=== PATIENT | female | born 1985 | race Caucasian/White ===

== ENCOUNTER → 2017-09-05 09:53 | Outpatient (CLI) | payer BC, SELFPAY ==
--- NOTE | 2017-09-05 10:04 | NM_ITS ---
HEPATOBILIARY SCAN WITH FATTY MEAL/ENSURE ORDERING PHYSICIAN : Abeba Capps PATIENT AGE: 32 years GENDER: Female HISTORY: Right upper quadrant pain and nausea Following 7.67millicuries Tc Choletec, images of the RUQ were obtained. There is prompt uptake of radionuclide by the liver incidental note of a tiny subcentimeter focal photopenic left lobe liver with no corresponding finding on the day before prior RUQ ultrasound 2014. Doubt this observation significance is a 32-year-old but noted. Possibly portal vein structure viewed on end? Rapid Generous activity Small bowel is visualized. The gallbladder was allowed to fill out to 60 minutes. Fatty meal/1 can of ensure over administered with imaging performed over 60 minutes minutes. Thereafter. The obtain data was analyzed and reveals a 16 % gallbladder ejection fraction (normal greater than 50%; borderline 35-50%). The technologist did not comment on pain following fatty meal but more typically would if there were pain. . Visual inspection which supports that there is suboptimal contraction of the gallbladder as well. Although activity overlying bowel loop may may contribute this low ejection fraction at calculation IMPRESSION: . Abnormal functioning gallbladder. Low 16% % gallbladder ejection fraction following fatty meal /1 can of ensure. Suboptimal contraction supporting cholecystitis/biliary dyskinesia Tiny subcentimeter photopenic area left lobe of liver is noted with no corresponding finding left lobe on ultrasound. Doubt of significance in this age patient
--- NOTE | 2017-09-05 10:36 | US_ITS ---
US abdomen limited Ordering Physician: Abeba Capps Patient Age: 32 years: Female HISTORY: ITS.REASON: RUQ PAIN TECHNIQUE: Ultrasound abdomen-] quadrant COMPARISON :Previous ultrasound right upper quadrant July 2015 FINDINGS Pancreas appears satisfactory. Unremarkable Liver. . No biliary ductal dilatation Gallbladder. No gallstones scant sludge. No gallbladder wall thickening or inflammation. Moderate size gallbladderl 8 seem in length. CBD normal diameter less than 2 mm at hilum of liver. Right kidney normal size 9 point to 5 cm. No hydronephrosis nor mass. . No significant change since 2014 ultrasound right upper quadrant IMPRESSION: -------- Gallbladder. No gallstones. Scant debris and sludge. Not significant. Moderatesize gallbladder Liver pancreas & right kidney unremarkable
== END ==
PROVIDERS: Family Provider Family Medicine; PCP Family Medicine; Visit Provider Nurse Practitioner
DX: R10.11 Right upper quadrant pain (principal); K83.8 Other specified diseases of biliary tract
CPT/HCPCS: 76705; 78227; A9537

== ENCOUNTER → 2021-08-10 11:42 | Outpatient (CLI) | payer BC, SELFPAY ==
[2021-08-10 12:13] LABS: Adenovirus,PCR Not Detected (NotDetected); Bordetella Pertussis Not Detected (NotDetected); Chlamydophila Pneumoniae, PCR Not Detected (NotDetected); Coronavirus 19, PCR Not Detected (NotDetected); Coronavirus 229E Not Detected (NotDetected); Coronavirus NL63 Not Detected (NotDetected); Coronavirus OC43 Not Detected (NotDetected); Coronovirus HKU1,PCR Not Detected (NotDetected); Human Metapneumovirus Not Detected (NotDetected); Influenza A, PCR Not Detected (NotDetected); Influenza AH1, 2009 Not Detected (NotDetected); Influenza AH1, PCR Not Detected (NotDetected); Influenza AH3,PCR Not Detected (NotDetected); Influenza B, PCR Not Detected (NotDetected); Mycoplasma Pneumoniae, PCR Not Detected (NotDetected); Parainfluenza 1, PCR Not Detected (NotDetected); Parainfluenza 2, PCR Not Detected (NotDetected); Parainfluenza 3, PCR Not Detected (NotDetected); Parainfluenza 4, PCR Not Detected (NotDetected); Respiratory Syncytial Virus Not Detected (NotDetected); Rhinovirus/Enterovirus Not Detected (NotDetected)
[2021-08-10 12:19] LABS: Basophils # 0.1 K/mm3 (0-0.2); Basophils % 1.7 % (0.1-2.0); Eosinophils # 0.1 K/mm3 (0.0-0.4); Eosinophils % 1.7 % (0.1-12.0); Hematocrit 43.5 % (37.0-47.0); Hemoglobin 13.7 g/dL (12.2-16.2); Lymphocytes # 1.8 K/mm3 (0.7-4.5); Lymphocytes % 28.3 % (10-50); Mean Corpuscular HGB Conc 31.5 g/dL (31.8-35.4); Mean Corpuscular Hemoglobin 28.8 pg (27.0-31.2); Mean Corpuscular Volume 91.4 fl (81-99); Monocytes # 0.3 K/mm3 (0.1-1.0); Monocytes % 4.6 % (1.7-9.3); Neutrophils # 4.1 K/mm3 (1.8-7.8); Neutrophils % 63.7 % (37.0-80.0); Platelet Count 324 K/mm3 (142-424); Red Blood Count 4.76 M/mm3 (4.20-5.40); White Blood Count 6.4 K/mm3 (4.8-10.8)
[2021-08-10 14:48] LABS: Strep Scrn Group A (Rapid) Negative (Negative)
== END ==
PROVIDERS: PCP Nurse Practitioner; Visit Provider Nurse Practitioner
DX: Z20.822 Contact with and (suspected) exposure to COVID-19 (principal)
CPT/HCPCS: 36415; 85025; 87430; 87581; 87632; 87798; C9803; U0003; U0005

== ENCOUNTER 2021-08-25 11:26 | Emergency (ER) | payer BC, SELFPAY ==
[2021-08-25 13:35] VITALS: BP 136/82; PULSE 98; RESP 20; TEMP 37; O2SAT 100; BMI 30.5
--- NOTE | 2021-08-25 14:16 | [facility].EDUTC ---
[facility] [place] Disposition Clinical Impression: Close exposure to COVID-19 virus, Sore throat Disposition: Home, Self-Care Condition on Discharge: Good Instructions: DI for COVID-19 (Suspected or Confirmed ) Additional Instructions: covid swab was sent to lab, call tomorrow for results. self isolate until test results are known to be negative No sign of a bacterial infection. Likely viral. Viruses can take 7-14 days to run their course. Nasal saline and bulb syringe or nose Radha to remove nasal drainage to help with nasal congestion. Hard to eat, drink, sleep with nasal congestion so important to keep this cleaned out. Monitor temp. Tylenol or Motrin as needed for pain or fever Encourage fluids, water, Gatorade, Powerade, Pedialyte if /toddler/child Warm salt water gargles Warm fluids Sore throat lozenges Sleep elevated Humidifier/vaporizer Follow-up immediately for new or worsening symptoms or no noticeable improvement over the next 48-72 hours. Referrals: Abeba Capps APRN [Primary Care Provider] - Time of Disposition: 14:19 Medical Decision Making - Greg Inquiry Pt receiving controlled substance: No Vital Signs: 08/25/21 13:35 Temperature 98.6 F Temperature Source Oral Pulse Rate [Right Brachial] 98 H Respiratory Rate 20 Blood Pressure [Right Arm] 136/82 Blood Pressure Mean [Right Arm] 100 Blood Pressure Source [Right Arm] Automatic Cuff Blood Pressure Position [Right Arm] Supine 02 Sat by Pulse Oximetry 100 Oxygen Delivery Method Room Air Orders (Tests/Meds): ORDERS Category Date Time Status Covid-19 Nasal PCR ([facility]) Routine Lab 08/25/21 13:40 Ordered [facility] [place] HPI - General Chief complaint: Urgent Treatment Center Stated complaint: covid test, sore throat Time Seen by Provider: 08/25/21 14:17 Mode of Arrival: Ambulatory Source of Information: Patient Limitations: No Limitations Description of Symptoms (Recalled from Triage Doc. by RN): SORE THROAT AND COVID TEST HEENT Symptoms (Recalled from RN notes): No Resp Symptoms (Recalled from RN notes): No Skin Symptoms (Recalled from RN notes): No MS Symptoms (Recalled from RN notes): No Functional Status (Recalled from RN notes): N/A - History of Present Illness Provider Complaint: 36 yr old female presents for covid test. 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 I have reviewed the patient's past medical history: Yes Medical History: Reports:: Urinary Tract Infection Other Medical History: Reports: Anemia Laterality Cases: Bilateral: Tonsillectomy Other Surgeries: Yes: Cholecystectomy, Tubal Ligation Amputation: No Fractures: No Comment: Rt. Temporal cyst removed-2004. [place] teeth removal-2006. BTC, repair of uterine perforation-2016 - Social History Smoking Status: Never smoker Alcohol Intake: never Substance Use Type: denies use Occupational Status: employed Family Hx:: Coronary Artery Disease [employer] history: Non-contributory ROS Obtained: Yes Systems reviewed as appropriate & no additional complaints - Constitutional Constitutional: Reports system reviewed and no additional complaints, except as docu, Denies fatigue - Eyes Eyes: Reports system reviewed and no additional com
[2021-08-25 14:29] VITALS: BP 136/82; PULSE 98; RESP 20; TEMP 37
== END 2021-08-25 14:31 | disposition home or self-care (01) ==
PROVIDERS: Emergency Provider Nurse Practitioner Family; PCP Nurse Practitioner
DX: J02.9 Acute pharyngitis, unspecified (principal); Z20.822 Contact with and (suspected) exposure to COVID-19
CPT/HCPCS: 99203; C9803; G0463; U0003; U0005

== ENCOUNTER → 2022-10-07 23:27 | Outpatient (CLI) | payer BC, SELFPAY ==
[2022-10-07 18:30] LABS: Basophils # 0.1 K/mm3 (0-0.2); Basophils % 1.8 % (0.1-2.0); Eosinophils # 0.2 K/mm3 (0.0-0.4); Eosinophils % 2.2 % (0.1-12.0); Hematocrit 40.1 % (37.0-47.0); Hemoglobin 13.1 g/dL (12.2-16.2); Lymphocytes # 2.1 K/mm3 (0.7-4.5); Lymphocytes % 29.4 % (10-50); Mean Corpuscular HGB Conc 32.7 g/dL (31.8-35.4); Mean Corpuscular Hemoglobin 28.5 pg (27.0-31.2); Mean Corpuscular Volume 87.3 fl (81-99); Mean Platelet Volume 7.3 fl (7.4-10.4); Monocytes # 0.3 K/mm3 (0.1-1.0); Monocytes % 4.8 % (1.7-9.3); Neutrophils # 4.4 K/mm3 (1.8-7.8); Neutrophils % 61.8 % (37.0-80.0); Platelet Count 387 K/mm3 (142-424); Red Cell Distribution Width 13.3 % (11.5-17.5); White Blood Count 7.1 K/mm3 (4.8-10.8)
[2022-10-07 18:37] LABS: Alanine Aminotransferase 20 U/L (12-78); Albumin Level 4.3 g/dl (3.5-5.0); Albumin/Globulin Ratio 1.7 (1.1-1.8); Alkaline Phosphatase 41 U/L (38-126); Anion Gap 9.4 mEq/L (5-15); Aspartate Amino Transferase 28 U/L (14-36); Bilirubin,Total 0.3 mg/dl (0.2-1.3); Blood Urea Nitrogen 11 mg/dl (7-17); Calcium 9.2 mg/dl (8.4-10.2); Carbon Dioxide 27 mmol/L (22.0-30.0); Chloride 103 mmol/L (98-107); Estimated Glomerular Filt Rate 70 ml/min (>60); GFR (African American) 85 ML/MIN (>60); Globulin 2.6 g/dL (1.3-3.2); Glucose 106 mg/dl (74-100); Potassium 4.4 mmoL/L (3.5-5.1); Sodium 135 mmol/L (136-145); Total Protein,Serum 6.9 g/dl (6.3-8.2)
[2022-10-07 18:43] LABS: C-Reactive Protein 5.8 mg/L (0-4)
[2022-10-07 19:08] LABS: Thyroid Stimulating Hormone 0.88 uIU/mL (0.465-4.68)
[2022-10-07 20:09] LABS: Erythrocyte Sedimentation Rate 15 mm/hr (0-20)
== END ==
PROVIDERS: PCP Nurse Practitioner; Visit Provider Nurse Practitioner
DX: R51.9 Headache, unspecified (principal)
CPT/HCPCS: 80053; 84443; 85025; 85651; 86140

== ENCOUNTER → 2022-10-08 12:19 | Outpatient (CLI) | payer BC, SELFPAY | PROVIDERS: PCP Nurse Practitioner; Visit Provider Nurse Practitioner | DX: R51.9 Headache, unspecified (principal) ==

== ENCOUNTER → 2022-10-21 14:30 | Outpatient (CLI) | payer BC, SELFPAY ==
--- NOTE | 2022-10-21 14:35 | MR_ITS ---
FINAL REPORT CLINICAL HISTORY: headaches with right sided face and ear pain. FINDINGS: Multi planar MR imaging was obtained through the brain without contrast. The midline structures appear intact. There is no evidence of Chiari malformation. On T2 and flair axial images the brain parenchyma is homogeneous. On diffusion-weighted images there is no evidence of restricted diffusion. The visualized paranasal sinuses demonstrate normal signal voids. The seventh and eighth nerve root complexes are intact. IMPRESSION: Essentially unremarkable nonenhanced brain MRI. Reviewed, Interpreted and Dictated by Yuri Blakely MD Transcribed by Rajan Merlos Authenticated and [facility]
== END ==
PROVIDERS: PCP Nurse Practitioner; Visit Provider Family Medicine
DX: R51.9 Headache, unspecified (principal)
CPT/HCPCS: 70551

== ENCOUNTER 2024-10-18 16:04 | Outpatient (CLI) | payer BC, SELFPAY ==
[2024-10-18 18:34] LABS: Coronavirus 19, PCR Not Detected (NotDetected); Human Rhinovirus Not Detected (NotDetected); Influenza A, PCR Not Detected (NotDetected); Influenza B, PCR Not Detected (NotDetected); Respiratory Syncytial Virus Not Detected (NotDetected)
== END 2024-10-18 23:59 | disposition home or self-care (01) ==
LOC: LAB.DROPOF 10-20 08:03
PROVIDERS: PCP Nurse Practitioner; Visit Provider Nurse Practitioner
DX: J06.9 Acute upper respiratory infection, unspecified (principal)
CPT/HCPCS: 87631